=== PATIENT | female | born 1980 | race Caucasian/White ===

== ENCOUNTER 2017-03-11 16:44 | Emergency (ER) | payer SELFPAY ==
[2017-03-11 17:27] VITALS: BP 119/70; PULSE 84; RESP 16; TEMP 98.9; O2SAT 99
[2017-03-11] MEDS ORDERED: DiphenhydrAMINE 50 mg/ml Inj IVP STA (18:16)
[2017-03-11 18:31] LABS: BASO % 0.4 % (0.0-2.0); EOS # 0.1 K/uL (0.0-0.7); EOS % 2.1 % (0.0-4.0); HEMOGLOBIN 13.9 g/dL (12.0-16.0); LYMPH # 2.1 K/uL (1.0-4.3); LYMPH % 34.7 % (20.0-40.0); MEAN CELL VOLUME 91.7 fl (81.0-99.0); MEAN CORPUSCULAR HEMOGLOBIN 30.1 pg (27.0-31.0); MEAN CORPUSCULAR HGB CONC 32.9 g/dL (33.0-37.0); MEAN PLATELET VOLUME 7.5 fl (7.2-11.7); MONO # 0.4 K/uL (0.0-0.8); MONO % 6.5 % (0.0-10.0); NEUT # 3.4 K/uL (1.8-7.0); NEUT % 56.3 % (50.0-75.0); RBC 4.61 Mil/uL (3.80-5.20); RED CELL DISTRIBUTION WIDTH 13.8 % (11.5-14.5); WHITE BLOOD COUNT 6.1 K/uL (4.8-10.8)
[2017-03-11 18:41] LABS: ALB/GLOB RATIO 1.5 (1.0-2.1); ALBUMIN 4.3 g/dL (3.5-5.0); ALT/SGPT 28 U/L (9-52); AST/SGOT 21 U/L (14-36); BLOOD UREA NITROGEN 13 mg/dl (7-17); CALCIUM 8.7 mg/dL (8.4-10.2); GFR AFRICAN-AMERICAN > 60; GFR NON-AFRICAN AMERICAN > 60
--- NOTE | 2017-03-11 18:43 | ED PDOC ---
HPI: Abdomen History Per: Patient <Dixon Morfin - Last Filed: 03/11/17 19:24> <Brittani Wolf - Last Filed: 03/13/17 17:26> Time Seen by Provider: 03/11/17 17:27 Chief Complaint (Nursing): Abdominal Pain Additional Complaint(s): 37 y/o F presenting with diffuse abdominal pain, feeling feverish, flushing skin and vomiting that began 5 days ago. Onset of symptoms was 30-60 minutes after seafood intake. Abdominal pain is mild, diffuse and pressure-like. Pt had 5 vomiting episodes at onset and 2 episodes last night, and reports 3 episodes of non-bloody loose stools daily since onset. Pt has been taking Motrin and pro- biotics with NO improvement. Pt tolerating PO with good appetite. Pt reports a similar previous episode 3 yeras ago which prompted to ER where Salmonella infection was diagnosed. Since then, pt reports having abdominal discomfort and mild pruritus with seafood intake. Pt had an allergy skin test ~9 years ago which detected various hypersensitivity agents. Pt denies headache, CP, SOB, loss of appetite, acid reflux, rash or peripheral edema. Medications: none. PMHx: denied. PSHx: 2 C-sections OBHx and Issue Clerk: menses are regular, last 3 years ago. SHx: Denies tobacco, alcohol or recreational drugs. Lives with and 2 children. (Dixon Morfin) Supervising Attending Note - Supervising Attending Note The Documented history was done by the: Physician Bookkeeping Clerks Supervisor, Attending Physician The documented physical exam was done by the: Physician Bookkeeping Clerks Supervisor, Attending Physician - Attestation: I have personally seen and examined this patient.: Yes I have fully participated in the care of the patient.: Yes I have reviewed all pertinent clinical information: Yes <Brittani Wolf - Last Filed: 03/13/17 17:26> Past Medical History - Medical History PMH: No Chronic Diseases - Surgical History Surgical History: - Family History Family History: States: Unknown Family Hx - Immunization History Hx Tetanus Toxoid Vaccination: No Hx Influenza Vaccination: No Hx Pneumococcal Vaccination: No <Dixon Morfin - Last Filed: 03/11/17 19:24> <Brittani Wolf - Last Filed: 03/13/17 17:26> Vital Signs: Last Vital Signs Temp 98.9 F 03/11/17 17:18 Pulse 84 03/11/17 17:18 Resp 16 03/11/17 17:18 BP 119/70 03/11/17 17:18 Pulse Ox 99 03/11/17 19:24 - Home Medications Home Medications: Ambulatory Orders Medication Instructions Recorded DiphenhydrAMINE [Benadryl] 25 mg PO Q6 PRN #30 cap 03/11/17 Famotidine [Pepcid] 40 mg PO DAILY PRN #14 tab 03/11/17 - Allergies Allergies/Adverse Reactions: Allergies Allergy/AdvReac Type Severity Reaction Status Date / Time Penicillins Allergy Verified 03/31/16 23:32 Review of Systems ROS Statement: Except As Marked, All Systems Reviewed And Found Negative Constitutional: Positive for: Fever, Chills, Sweats Gastrointestinal: Positive for: Vomiting, Abdominal Pain Skin: Positive for: Rash Neurological: Positive for: Dizziness <Brittani Wolf - Last Filed: 03/13/17 17:26> Physical Exam - Reviewed Vital Signs Reviewed: Yes - Physical Exam Appears: Positive for: Well, No Acute Distress Head Exam: Positive for: ATRAUMATIC, NORMAL INSPECTION, NORMOCEPHALIC Skin: Positive for: Warm (erythematous facial skin.) Eye Exam: Positive for: EOMI, PERRL. Negative for: Conjunctival injection ENT: Positive for: Normal ENT Inspection Neck: Positive for: Normal, Supple Cardiovascular/Chest: Positive for: Regular Rate, Rhythm Respiratory: Positive for: Normal Breath Sounds Gastrointestinal/Abdominal: Positive for: Bowel Sounds, Soft, Tenderness ((mild diffusively)). Negative for: Mass, Guarding, Rebound <Dixon Morfin - Last Filed: 03/11/17 19:24> - Laboratory Results Result Diagrams: 03/11/17 18:24 03/11/17 18:24 - ECG O2 Sat by Pulse Oximetry: 99 <Dixon Morfin - Last Filed: 03/11/17 19:24> - Laboratory Results Result Diagrams: 03/11/17 18:24 03/11/17 18:24 <Brittani Wolf - Last Filed: 03/13/17 17:26> Medical Decision Making <Dixon Morfin - Last Filed: 03/11/17 19:24> <Brittani Wolf - Last Filed: 03/13/17 17:26> Medical Decision Makin37 y/o F presenting with abdominal pain, feeling feverish and flushed skin after seafood intake. Plan --CBC --CMP --Urinalysis --Urine BHCG qualitative --Benadryl --Famotidine Pt reports marked improvement 1 hour after Benadryl and Pepcid intake, flushed skin and abdominal pain have alleviated. (Dixon Morfin) Disposition - Patient ED Disposition Is Patient to be Admitted: No - Disposition Disposition: Routine/Home Disposition Time: 19:25 <Dixon Morfin - Last Filed: 03/11/17 19:24> <Brittani Wolf - Last Filed: 03/13/17 17:26> - Clinical Impression Clinical Impression: Allergic reaction - Disposition Condition: GOOD Prescriptions: DiphenhydrAMINE [Benadryl] 25 mg PO Q6 PRN #30 cap PRN Reason: Itching / Pruritus Famotidine [Pepcid] 40 mg PO DAILY PRN #14 tab PRN Reason: reflux Instructions: Food Allergy (ED) Forms: [employer] (Spanish), [facility] ED School/Work Excuse Print Language: BELARUSIAN
[2017-03-11] MEDS ORDERED: Sodium Chloride 0.9% 1,000 ML IV STA (19:09)
== END 2017-03-11 20:30 | disposition home or self-care (01) ==
LOC: H.ER 16:44
DX: T78.40XA Allergy, unspecified, initial encounter (principal); Z88.0 Allergy status to penicillin
CPT/HCPCS: 80053; 81025; 85025; 96374; 96375; 99283; J1200; J7040

== ENCOUNTER 2017-07-17 18:41 | Emergency (ER) | payer MEDICAID ==
[2017-07-17 19:04] VITALS: BP 108/73; PULSE 81; RESP 18; TEMP 98.3; O2SAT 99
--- NOTE | 2017-07-17 19:25 | ED PDOC ---
HPI: CCC, URI, Sore Throat Time Seen by Provider: 07/17/17 19:09 Chief Complaint (Nursing): Flu-like Symptoms Chief Complaint (Provider): Fever, Cough, Body Aches and Generalized weakness History Per: Patient History/Exam Limitations: no limitations Onset/Duration Of Symptoms: Days Current Symptoms Are (Timing): Still Present Location Of Pain: None Sick Contacts (Context): Family Member(s) (son has similar symptoms) Associated Symptoms: Fever, Cough, Vomiting (x2 episodes). denies: Diarrhea Ear Symptoms: Bilateral: None Severity: None Additional Complaint(s): 37 year old female presents to the ED complaining of fever, cough, body aches and generalized weakness. The patient states that today, in addition to her symptoms she had 2 episodes of vomiting. Denies abdominal pain, diarrhea, recent travel, rash, urinary symptoms. Past Medical History Reviewed: Historical Data, Nursing Documentation, Vital Signs Vital Signs: Last Vital Signs Temp 98.3 F 07/17/17 19:01 Pulse 81 07/17/17 19:01 Resp 18 07/17/17 19:01 BP 108/73 07/17/17 19:01 Pulse Ox 99 07/17/17 19:34 - Medical History PMH: No Chronic Diseases - Surgical History Surgical History: - Family History Family History: States: Unknown Family Hx - Living Arrangements Living Arrangements: With Family - Social History Current smoker - smoking cessation education provided: No Ex-Smoker (has not smoked in the last 12 months): No Alcohol: None Drugs: Denies - Immunization History Hx Tetanus Toxoid Vaccination: No Hx Influenza Vaccination: No Hx Pneumococcal Vaccination: No - Home Medications Home Medications: Ambulatory Orders Medication Instructions Recorded DiphenhydrAMINE [Benadryl] 25 mg PO Q6 PRN #30 cap 03/11/17 Famotidine [Pepcid] 40 mg PO DAILY PRN #14 tab 03/11/17 Guaifenesin 400 mg PO QID #20 tablet 07/17/17 Ibuprofen [Motrin Tab] 600 mg PO QID PRN #20 tab 07/17/17 Ondansetron ODT [Zofran ODT] 4 mg PO DAILY PRN #20 odt 07/17/17 - Allergies Allergies/Adverse Reactions: Allergies Allergy/AdvReac Type Severity Reaction Status Date / Time Penicillins Allergy Verified 03/31/16 23:32 Review of Systems ROS Statement: Except As Marked, All Systems Reviewed And Found Negative Constitutional: Positive for: Fever, Weakness, Other (body aches) Respiratory: Positive for: Cough Gastrointestinal: Positive for: Vomiting (x2 episodes). Negative for: Abdominal Pain, Diarrhea Physical Exam - Reviewed Nursing Documentation Reviewed: Yes Vital Signs Reviewed: Yes - Physical Exam Appears: Positive for: Non-toxic, No Acute Distress (Patient is awake, alert, oriented x 3) Head Exam: Positive for: ATRAUMATIC, NORMAL INSPECTION, NORMOCEPHALIC Skin: Positive for: Normal Color, Warm, Dry. Negative for: Cyanosis ENT: Positive for: Normal ENT Inspection (mucous membranes are moist). Negative for: Nasal Congestion, Tonsillar Exudate, Tonsillar Swelling Neck: Positive for: Normal ((-) tenderness, (-) stiffness, (-) lymphadenopathy.) , Painless ROM, Supple Cardiovascular/Chest: Positive for: Regular Rate, Rhythm, Chest Non Tender. Negative for: Gallop, Murmur, Tachycardia Respiratory: Positive for: Normal Breath Sounds. Negative for: Rales, Rhonchi, Stridor, Wheezing (breath sounds equal bilaterally.), Respiratory Distress Gastrointestinal/Abdominal: Positive for: Normal Exam, Bowel Sounds, Soft, Other ((-) palpable masses). Negative for: Tenderness, Mass, Distended, Guarding, Rebound Back: Positive for: Normal Inspection. Negative for: L CVA Tenderness, R CVA Tenderness Extremity: Positive for: Normal ROM, Other ((-) edema, (+) distal pulses.). Negative for: Tenderness, Deformity, Swelling Neurologic/Psych: Positive for: Alert, Oriented, Gait, Other (: Mental status as above; (-) focal findings.) - ECG O2 Sat by Pulse Oximetry: 99 (RA) Pulse Ox Interpretation: Normal Medical Decision Making Medical Decision Makin Initial Impression 37 y/o female presenting with fever, cough, body aches and generalized weakness Initial plan: * CXR * Zofran 4mg PO * Reevaluation Uhcg : (-) CXR : NAD, as read by PA On re-evaluation, patient remains AAOx3, in no acute distress. Neck is supple, breathing is easy and unlabored. Patient is tolerating po fluids. Patient informed of likely diagnosis of influenza and that they are outside of the treatment window and Tamiflu cannot be prescribed. Patient advised to drink alot of fluids and bed rest. Advised to follow up with the clinic in 1-2 days without fail. Advised to take medication as prescribed. Return to the emergency room at any time for any new or worsening symptoms. Patient states she fully agrees with and understands discharge instructions. States that she agrees with the plan and disposition. Verbalized and repeated discharge instructions and plan. I have given the patient opportunity to ask any additional questions. Documented by Tara Gil acting as a scribe for Dana Ramos PA-C. All medical record entries made by the Scribe were at my direction and personally dictated by me. I have reviewed the chart and agree that the record accurately reflects my personal performance of the history, physical exam, medical decision making, and the department course for this patient. I have also personally directed, reviewed, and agree with the discharge instructions and disposition. Disposition - Clinical Impression Clinical Impression: Cough, Vomiting - Patient ED Disposition Is Patient to be Admitted: No Counseled Patient/Family Regarding: Studies Performed, Diagnosis, Need For Followup, Rx Given - Disposition Referrals: [facility] [Outside] Disposition: Routine/Home Disposition Time: 20:00 Condition: STABLE Additional Instructions: Thank you for letting us take care of you today. You were treated for cough, vomiting. The emergency medical care you received today was directed at your acute symptoms. If you were prescribed any medication, please fill it and take as directed. It may take several days for your symptoms to resolve. Return to the Emergency Department if your symptoms worsen, do not improve, or if you have any other problems. Please call one of the physicians/clinics you have been referred to that are listed on the Patient Visit Information form that is included in your discharge packet. Bring any paperwork you were given at discharge with you along with any medications you are taking to your follow up visit. Our treatment cannot replace ongoing medical care by a primary care provider (PCP) outside of the emergency department. Thank you for allowing the [facility] team to be part of your care today. If you had an X-Ray : A Radiologist will review the ED reading if any change in treatment is needed we will contact you. Prescriptions: Guaifenesin 400 mg PO QID #20 tablet Ibuprofen [Motrin Tab] 600 mg PO QID PRN #20 tab PRN Reason: Fever >100.4 F Ondansetron ODT [Zofran ODT] 4 mg PO DAILY PRN #20 odt PRN Reason: Nausea/Vomiting Instructions: Nausea and Vomiting, Adult, Cough, Adult (DC) Forms: [employer] (Estonian), [facility] ED School/Work Excuse Print Language: LUXEMBOURGISH - PA / KILN FURNITURE CASTER / Resident Statement MD/DO has reviewed & agrees with the documentation as recorded.
--- NOTE | 2017-07-18 08:33 | RAD ---
HISTORY: cough COMPARISON: Chest radiographs 06/17/2011. TECHNIQUE: Chest PA and lateral FINDINGS: LUNGS: No active pulmonary disease. PLEURA: No significant pleural effusion identified. No pneumothorax apparent. CARDIOVASCULAR: Normal. OSSEOUS STRUCTURES: No significant abnormalities. VISUALIZED UPPER ABDOMEN: Normal. OTHER FINDINGS: None. IMPRESSION: No interval acute cardiopulmonary disease appreciated.
== END 2017-07-17 20:50 | disposition home or self-care (01) ==
LOC: H.ER 18:41
DX: R05 Cough (principal); R11.10 Vomiting, unspecified; Z88.0 Allergy status to penicillin